=== PATIENT | female | born 1960 ===

== ENCOUNTER 2023-04-01 12:48 | Outpatient (CLI) | payer OTHER | END 2023-04-01 12:49 | disposition home or self-care (01) | LOC: BICRAD 12:48 | PROVIDERS: ATTEND Preventive Medicine Occupational Medicine | DX: Z02.71 Encounter for disability determination (principal); M51.16 Intervertebral disc disorders with radiculopathy, lumbar region; M23.92 Unspecified internal derangement of left knee; S82.302A Unspecified fracture of lower end of left tibia, initial encounter for closed fracture; M17.12 Unilateral primary osteoarthritis, left knee; M47.816 Spondylosis without myelopathy or radiculopathy, lumbar region | CPT/HCPCS: 72100 ==